=== PATIENT | male | born 1960 | race Caucasian/White ===

== ENCOUNTER 2016-08-18 14:50 | Emergency (ER) | payer OTHER ==
[2016-08-18] MEDS ORDERED: ZOCOR20 M1 PO (14:56)
[2016-08-18] MEDS ORDERED: FUROSEMIDE40 MG (14:56)
[2016-08-18] MEDS ORDERED: MULTI COMPLETE1 EACH PO (14:56)
[2016-08-18] MEDS ORDERED: ZYLOPRIM300 MG PO (14:57)
[2016-08-18] MEDS ORDERED: ASPIR LOW81 MG PO (14:57)
[2016-08-18] MEDS ORDERED: TOPROL XL 25MG25 MG PO (14:57)
[2016-08-18 17:40] VITALS: BP 164/64
== END 2016-08-18 17:36 | disposition home or self-care (01) ==
LOC: ED 14:50
DX: S61.411A Laceration without foreign body of right hand, initial encounter (principal); S01.111A Laceration without foreign body of right eyelid and periocular area, initial encounter; S00.83XA Contusion of other part of head, initial encounter; S20.211A Contusion of right front wall of thorax, initial encounter; S20.219A Contusion of unspecified front wall of thorax, initial encounter; V40.0XXA Car driver injured in collision with pedestrian or animal in nontraffic accident, initial encounter
CPT/HCPCS: 90715